=== PATIENT | male | born 1990 | race Caucasian/White ===

== ENCOUNTER 2020-12-01 18:19 | Inpatient (IN) | payer OTHER ==
[~2020-12-01] VITALS: Ht 190.5 cm; Wt 91.2 kg
[~2020-12-01 18:19] MED LIST: Polytrim Eye Dr10 ML RIGHTEYE
[2020-12-01 18:44] LABS: BASOPHILS ABSOLUTE AUTO 0.04 K/mm3 (0.00-0.23); BASOPHILS PERCENT AUTO 0 % (0-2); EOSINOPHILS ABSOLUTE AUTO 0.04 K/mm3 (0.00-0.68); EOSINOPHILS PERCENT AUTO 0 % (0-6); Hematocrit 45.2 % (37.0-53.0); Hemoglobin 15.3 g/dL (13.5-17.5); IMMATURE GRAN ABSOLUTE AUTO 0.03 K/mm3 (0.00-0.10); IMMATURE GRAN PERCENT AUTO 0 % (0-1); LYMPHOCYTES ABSOLUTE AUTO 1.84 K/mm3 (0.84-5.20); LYMPHOCYTES PERCENT AUTO 16 % (21-46); MONOCYTES PERCENT AUTO 6 % (4-13); Mean Corpuscular HGB 29.4 pg (26.0-34.0); Mean Corpuscular HGB Conc 33.8 g/dL (31.5-36.5); Mean Corpuscular Volume 87 fL (80-100); NEUTROPHILS ABSOLUTE AUTO 8.96 K/mm3 (1.96-9.15); NEUTROPHILS PERCENT AUTO 77 % (41-73); Platelet Count 270 K/mm3 (150-400); RDW Coefficient Variation 12.2 % (11.7-14.2); Red Blood Cell Count 5.21 M/mm3 (4.30-5.90); White Blood Cell Count 11.61 K/mm3 (4.00-11.30)
[2020-12-01 19:00] LABS: CPK Creatine Kinase 254 U/L (39-308); Creatine Kinase MB 2.9 ng/mL (0.0-3.6); Creatine Kinase MB Index 1.1 (0.0-4.0)
[2020-12-01 19:01] LABS: Alanine Aminotransfer (ALT/SGP 32 U/L (12-78); Albumin, Blood 4.3 g/dL (3.4-5.0); Alk Phos 49 U/L (50-136); Anion Gap 6 mmol/L (6-16); Aspartate Aminotrans (AST/SGOT 22 U/L (12-37); Bilirubin, Total 0.4 mg/dL (0.1-1.0); Blood Urea Nitrogen 16 mg/dL (8-24); Bun/Creatinine Ratio 13.3 (12.0-20.0); CO2, Blood 24 mmol/L (21-32); Calcium, Blood 9.7 mg/dL (8.5-10.1); Chloride, Blood 112 mmol/L (98-108); Globulin, Blood 4.1 g/dL (2.2-4.0); Glomerular Filtration Rate >60 (60-); Glucose, Blood 77 mg/dL (70-99); Potassium, Blood 4.3 mmol/L (3.5-5.5); Sodium, Blood 142 mmol/L (136-145); Total Protein, Blood 8.4 g/dL (6.4-8.2)
[2020-12-01 22:33] LABS: U Amphetamine Screen DETECTED; U Benzodiazapine Screen DETECTED; U Cocaine Screen DETECTED; U Methamphetamine Screen DETECTED
[2020-12-01 22:34] LABS: U Barbituate Screen Not Detected; U Buprenorphine Screen Not Detected; U Cannabinoids Screen DETECTED; U Methadone Screen Not Detected; U Opiates Screen Not Detected; U Oxycodone Screen Not Detected; U Phencyclidine Screen Not Detected; U Propoxyphene Screen Not Detected
[2020-12-02 03:36] LABS: BASOPHILS ABSOLUTE AUTO 0.02 K/mm3 (0.00-0.23); BASOPHILS PERCENT AUTO 0 % (0-2); EOSINOPHILS ABSOLUTE AUTO 0.02 K/mm3 (0.00-0.68); EOSINOPHILS PERCENT AUTO 0 % (0-6); Hematocrit 36.8 % (37.0-53.0); Hemoglobin 12.6 g/dL (13.5-17.5); IMMATURE GRAN ABSOLUTE AUTO 0.01 K/mm3 (0.00-0.10); IMMATURE GRAN PERCENT AUTO 0 % (0-1); LYMPHOCYTES ABSOLUTE AUTO 2.18 K/mm3 (0.84-5.20); LYMPHOCYTES PERCENT AUTO 35 % (21-46); MONOCYTES ABSOLUTE AUTO 0.45 K/mm3 (0.16-1.47); MONOCYTES PERCENT AUTO 7 % (4-13); Mean Corpuscular HGB 29.7 pg (26.0-34.0); Mean Corpuscular HGB Conc 34.2 g/dL (31.5-36.5); Mean Corpuscular Volume 87 fL (80-100); NEUTROPHILS ABSOLUTE AUTO 3.56 K/mm3 (1.96-9.15); NEUTROPHILS PERCENT AUTO 57 % (41-73); Platelet Count 206 K/mm3 (150-400); RDW Coefficient Variation 12.5 % (11.7-14.2); RDW Standard Deviation 39.4 fL (35.1-46.3); Red Blood Cell Count 4.24 M/mm3 (4.30-5.90); White Blood Cell Count 6.24 K/mm3 (4.00-11.30)
[2020-12-02 03:53] LABS: Anion Gap 8 mmol/L (6-16); Blood Urea Nitrogen 15 mg/dL (8-24); Bun/Creatinine Ratio 14.7 (12.0-20.0); CO2, Blood 22 mmol/L (21-32); Calcium, Blood 8.7 mg/dL (8.5-10.1); Chloride, Blood 114 mmol/L (98-108); Creatinine, Blood 1.02 mg/dL (0.60-1.20); Glomerular Filtration Rate >60 (60-); Glucose, Blood 89 mg/dL (70-99); Potassium, Blood 3.6 mmol/L (3.5-5.5); Sodium, Blood 144 mmol/L (136-145)
--- NOTE | 2020-12-02 06:32 | NUR ---
END OF SHIFT SUMMARY: PATIENT BROUGHT FROM ED AROUND 0040 LOCALIZES TO PAIN BUT OTHERWISE HE HAS BEEN KEPT FAIRLY SEDATED TONIGHT. PROPOFOL INFUSING AT 50. OG TO SUCTION. PATIENT HAS REMAINED NSR WITH A STABLE BP. AC 30%5 PEEP/500/16. MINIMAL SECRETIONS FROM [facility]. NO FAMILY CALLED OR IDENTIFIED AT THIS TIME. MINIMAL URINE OUTPUT-250 ON MY SHIFT. SPOKE WITH POISON CONTROL AND THEY WERE HAPPY WITH HIS CURRENT CONDITION. THEY WILL BE CALLING AGAIN AT 1000
--- NOTE | 2020-12-02 07:45 | NUR ---
[place] of Care: Care assumed at 0700hr. Patient intubated and sedated. Vent to AC 16/500/5/30%, spO2-98-100%, VSS, tolerating vent without difficulty. Propofol gtt at 50mcg/kg/min, patient attempts to open eyes to verbal stimuli and withdraws to painful stimuli. Peripheral IV's x2 patent and intact. Dyson cath patent and intact, but only small amount of urine noted in drainage tube, NOC shift Rn reports 250ml output last NOC. Spoke with Dr. Lucas r/t IV fluids and urine output, received order to increase NS from 100ml/hr to 200ml/hr. Dr. Plunkett consulted for vent management, will discuss plan to wake patient for possible extubation today. Bilateral soft wrist restraints in place to protect lines, tubes, cords.
[2020-12-02 10:08] LABS: Base Excess Venous 0.3 mmol/L; Bicarbonate Venous 25.3 mmol/L (24.0-30.0); PCO2 Venous 31.5 mmHg (38-42); PO2 Venous 161 mmHg (38-42); pH Blood Venous 7.49 (7.34-7.37)
--- NOTE | 2020-12-02 19:32 | NUR ---
Shift Summary: NO significant changes throughout shift. Spoke with Dr. Plunkett this morning, received pl to not extubate patient today. Tolerated vent setting throughout shift, continues to appear calm and comfortable, VS remained stable. Propofol gtt decreased for 50mcg to 40mcg/kg/min. Patient attempts to open eyes to verbal stimuli, and withdraw to pain, but not following commands. Turns head [id number] with oral care. Peripheral IV's remain patent and intact. Dyson cath remains patent and intact, draining dark yellow urine. 300ml urine output this shift, Dr. Lucas aware of decreased urine output. Bedside report given to NOC shift RN.
[2020-12-03 04:14] LABS: BASOPHILS ABSOLUTE AUTO 0.01 K/mm3 (0.00-0.23); BASOPHILS PERCENT AUTO 0 % (0-2); EOSINOPHILS ABSOLUTE AUTO 0.04 K/mm3 (0.00-0.68); EOSINOPHILS PERCENT AUTO 1 % (0-6); Hematocrit 37.6 % (37.0-53.0); Hemoglobin 12.3 g/dL (13.5-17.5); IMMATURE GRAN ABSOLUTE AUTO 0.01 K/mm3 (0.00-0.10); IMMATURE GRAN PERCENT AUTO 0 % (0-1); LYMPHOCYTES ABSOLUTE AUTO 1.28 K/mm3 (0.84-5.20); LYMPHOCYTES PERCENT AUTO 15 % (21-46); MONOCYTES ABSOLUTE AUTO 0.79 K/mm3 (0.16-1.47); MONOCYTES PERCENT AUTO 9 % (4-13); Mean Corpuscular HGB 29.9 pg (26.0-34.0); Mean Corpuscular HGB Conc 32.7 g/dL (31.5-36.5); Mean Platelet Volume 10.4 fL (9.1-12.4); NEUTROPHILS ABSOLUTE AUTO 6.71 K/mm3 (1.96-9.15); NEUTROPHILS PERCENT AUTO 76 % (41-73); Platelet Count 176 K/mm3 (150-400); RDW Coefficient Variation 12.7 % (11.7-14.2); RDW Standard Deviation 42.5 fL (35.1-46.3); Red Blood Cell Count 4.11 M/mm3 (4.30-5.90); White Blood Cell Count 8.84 K/mm3 (4.00-11.30)
[2020-12-03 04:24] LABS: Mean Corpuscular Volume 92 fL (80-100)
[2020-12-03 04:45] LABS: Alanine Aminotransfer (ALT/SGP 23 U/L (12-78); Albumin, Blood 2.9 g/dL (3.4-5.0); Alk Phos 40 U/L (50-136); Anion Gap 7 mmol/L (6-16); Aspartate Aminotrans (AST/SGOT 17 U/L (12-37); Bilirubin, Total 0.5 mg/dL (0.1-1.0); Blood Urea Nitrogen 13 mg/dL (8-24); Bun/Creatinine Ratio 13.5 (12.0-20.0); CO2, Blood 22 mmol/L (21-32); Calcium, Blood 8.1 mg/dL (8.5-10.1); Chloride, Blood 114 mmol/L (98-108); Creatinine, Blood 0.96 mg/dL (0.60-1.20); Glomerular Filtration Rate >60 (60-); Glucose, Blood 83 mg/dL (70-99); Magnesium, Blood 2.1 mg/dL (1.6-2.4); Phosphorus, Blood 3.6 mg/dL (2.5-4.9); Potassium, Blood 3.9 mmol/L (3.5-5.5); Sodium, Blood 143 mmol/L (136-145)
[2020-12-03 05:47] LABS: Total Protein, Blood 5.9 g/dL (6.4-8.2)
--- NOTE | 2020-12-03 06:44 | NUR ---
END OF SHIFT SUMMARY: PATIENT TOLERATED VENT OVERNIGHT AND WILL LOCALIZE TO PAIN. HAVING TO KEEP PATIENT VERY SEDATED BECAUSE HE IMMEDIATLEY TRIES TO GRAB FOR VENT EVERYTIME SEDATION IS WEANED OR IF HE IS STIMULATED. NO WEAN DONE THIS MORNING DUE TO THAT. PROPOFOL HAS BEEN RAISED FROM 40 TO 60 ON SHIFT. HE WAS WAKING UP SO ABRUPTLY AND THRASHING IN THE BED. BED BATH COMPLETE.
--- NOTE | 2020-12-03 08:33 | NUR ---
[place] of Care: Care assumed at 0700hr. Patient intubated and sedated with Propofol gtt at 60mcg/kg/min. Vent to AC 16/500/5/30%, spO2-98%, VSS. Patient not responding to verbal stimuli or following commands. Turns head [id number] with oral care and withdraws all extremities to painful stimuli. Propofol gtt decreased to 50mcg/kg/min. Will discuss plan with Dr. Plunkett this morning, r/t plan for extubation. If no extubation planned, will perform sedation vacation to better assess neuro status. Peripheral IV's x2 patent and intact. Dyson cath patent and intact, draining clear yellow urine. Urine color and output has improved r/t yesterday. Soft bilateral wrist restraints in place to protect lines, tubes, cords. Will continue to monitor.
--- NOTE | 2020-12-03 10:04 | NUR ---
Self Extubation: At 0900hr, patient ventilator began alarming. RT Nathen and RN's Dionne Ng responded to room and found that patient had self-extubated. This RN then responded to room. Patient sat upright, and deep oral suctioning performed by PHYLICIA Ng, propofol stopped. . Placed on 2L/NC, spO2 95-98%, no s/s of respiratory distress or SOB. Patient remained drowsy, but attempting to open eyes and following commands to squeeze hands. Dr. Plunkett immediately updated on patient's condition, no new orders received. Dr. Lucas then update by this RN at approx 0930hr, no new orders received. Patient now drowsy, but remains awake, watching TV in room, oriented to self and place. Call light in reach, instructed on use and to not get out of bed without assistance. Will continue to monitor.
--- NOTE | 2020-12-03 15:22 | NUR ---
Left AMA: At approx 1445hr, Dr. Lucas arrive to patient's room. Patient then requesting to go home. Dr. Lucas then informed this RN that he would write for discharge orders. At 1500hr, patient then began pulling off all his leads and monitor cords, stating "my ride is here and i am going home". This RN encouraged patient to remain in room until discharge orders are received. Patient continued to insist he was leaving. AMA paperwork reviewed and then signed by patient. IV's removed, belongings returned to patient. Patient ambulated to [facility] without difficulty, 1520hr.
== END 2020-12-03 15:22 | disposition left against medical advice (07) | DRG 918 ==
LOC: ER 18:19 → ERHOLD 20:48 → ICUE 20:48
PROVIDERS: Emergency Medicine; Family Medicine; ADMIT Family Medicine
PROC: 0BH17EZ Insertion of Endotracheal Airway into Trachea, Via Natural or Artificial Opening (ICD-10-PCS; principal; 2020-12-01)
PROC: 5A1935Z Respiratory Ventilation, Less than 24 Consecutive Hours (ICD-10-PCS; 2020-12-01)
DX: T43.621A Poisoning by amphetamines, accidental (unintentional), initial encounter (principal); F15.129 Other stimulant abuse with intoxication, unspecified; I10 Essential (primary) hypertension; F17.210 Nicotine dependence, cigarettes, uncomplicated; D72.829 Elevated white blood cell count, unspecified; F14.10 Cocaine abuse, uncomplicated; F12.10 Cannabis abuse, uncomplicated
CPT/HCPCS: 31500; 36415; 51702; 71045; 80048; 80053; 82550; 82553; 82803; 83605; 83735; 84100; 84484; 85025; 93005; 93010; 94002; 94003; 96374-59; 96376-59; 99285-25; C9113; G0480; J1650; J2060; J2250; J2704; J7030